=== PATIENT | female | born 1980 | race Caucasian/White ===

== ENCOUNTER 2017-07-23 18:48 | Emergency (ER) | payer MEDICAID ==
[~2017-07-23] VITALS: Ht 152.4 cm; Wt 98.0 kg
[2017-07-23 18:58] VITALS: BP 140/81; PULSE 106; RESP 18; TEMP 98.2; O2SAT 100
--- NOTE | 2017-07-23 19:58 | PD ---
HPI Chief Complaint: Related Problem Time Seen by Provider: 19:21 Travel History International Travel<30 days: No Contact w/Intl Traveler<30days: No Traveled to known affect area: No History of Present Illness HPI 36-year-old female that presents to the ED for evaluation of 13 weeks and spotting. Per patient is started today. She has a history of a miscarriage in the past. She has had pregnancies 3 with one miscarriage, one preemie and the current one. She states that she is follow with her [employer] and had a 9 week ultrasound that showed intrauterine fetus. Per patient she had blood work and she has been told that everything looked fine. She does have a history of diabetes. She takes metformin and insulin. She denies any pain. No urinary or bowel movement issues. Per patient the spotting is minimal. Allergy to hydrocodone. Per patient is currently visiting as she is from out of town. She has any nausea or vomiting. No other symptoms. Patient concerned about miscarriage. PFSH Past Medical History Diabetes: Yes Patient Takes Glucophage: Yes (07/23/2017 0900) Diminished Hearing: No Tetanus Vaccination: Unknown Influenza Vaccination: No ?: LMP: 13 weeks, 04/21/2017 Dilation and Curettage (D&C): Yes Past Surgical History Tonsillectomy: Yes (T&A) Social History Alcohol Use: No Tobacco Use: No Substance Use: No Allergies-Medications (Allergen,Severity, Reaction): Coded Allergies: hydrocodone (Verified Allergy, Severe, 07/23/17) itch and rash Review of Systems Except as stated in HPI: all other systems reviewed are Neg Physical Exam Narrative GENERAL: SKIN: Warm and dry. HEAD: Atraumatic. Normocephalic. EYES: Pupils equal and round. No scleral icterus. No injection or drainage. ENT: No nasal bleeding or discharge. Mucous membranes pink and moist. Tongue is midline. No uvula deviation. NECK: Trachea midline. No JVD. CARDIOVASCULAR: Regular rate and rhythm. No murmurs, S3, S4. RESPIRATORY: No accessory muscle use. Clear to auscultation. Breath sounds equal bilaterally. GASTROINTESTINAL: Abdomen soft, non-tender, nondistended. Hepatic and splenic margins not palpable. Pelvic: Done with female nurse present. MUSCULOSKELETAL: Extremities without clubbing, cyanosis, or edema. No obvious deformities. Full range of motion of the upper and lower extremities bilaterally. 2+ pulses bilaterally. NEUROLOGICAL: Awake and alert. No obvious cranial nerve deficits. Motor grossly within normal limits. Five out of 5 muscle strength in the arms and legs. Normal speech. PSYCHIATRIC: Appropriate mood and affect; insight and judgment normal. Data Data Last Documented VS Vital Signs Date Time Temp Pulse Resp B/P (MAP) Pulse Ox O2 Delivery O2 Flow Rate FiO2 07/23/17 18:58 98.2 106 18 140/81 (100) 100 Orders Orders Beta Hcg (Quant/Titer) (07/23/17 20:02) Complete Blood Count With Diff (07/23/17 20:02) Gc And Chlamydia Pcr (07/23/17 20:02) Type And Screen (07/23/17 20:02) Us Pelvis (Ques Preg/Ectopic) (07/23/17 ) Wet Prep Profile (07/23/17 20:02) Urinalysis - C+S If Indicated (07/23/17 20:02) Ed Urine Pregnancytest Poc (07/23/17 21:17) Labs Laboratory Tests Test 07/23/17 19:49 07/23/17 20:25 White Blood Count 12.5 TH/MM3 Red Blood Count 4.93 MIL/MM3 Hemoglobin 13.4 GM/DL Hematocrit 39.9 % Mean Corpuscular Volume 81.0 FL Mean Corpuscular Hemoglobin 27.1 PG Mean Corpuscular Hemoglobin Concent 33.5 % Red Cell Distribution Width 14.3 % Platelet Count 364 TH/MM3 Mean Platelet Volume 8.3 FL Neutrophils (%) (Auto) 75.1 % Lymphocytes (%) (Auto) 18.4 % Monocytes (%) (Auto) 5.1 % Eosinophils (%) (Auto) 0.9 % Basophils (%) (Auto) 0.5 % Neutrophils # (Auto) 9.4 TH/MM3 Lymphocytes # (Auto) 2.3 TH/MM3 Monocytes # (Auto) 0.6 TH/MM3 Eosinophils # (Auto) 0.1 TH/MM3 Basophils # (Auto) 0.1 TH/MM3 CBC Comment DIFF FINAL Differential Comment Urine Color YELLOW Urine Turbidity HAZY Urine pH 6.0 Urine Specific [place] 1.031 Urine Protein TRACE mg/dL Urine Glucose (UA) 1000 mg/dL Urine Ketones 40 mg/dL Urine Occult Blood LARGE Urine Nitrite NEG Urine Bilirubin NEG Urine Urobilinogen LESS THAN 2.0 MG/DL Urine Leukocyte Esterase NEG Urine RBC 18 /hpf Urine WBC 6 /hpf Urine Squamous Epithelial Cells 14 /hpf Urine Mucus FEW /lpf Microscopic Urinalysis Comment CULT NOT INDICATED Human Chorionic Gonadotropin, Quant 87063 MIU/ML Clue Cells (Wet Prep) NONE SEEN Vaginal Trichomonas (Wet Prep) NONE SEEN Vaginal Yeast (Wet Prep) NONE SEEN MDM Medical Decision Making Medical Screen Exam Complete: Yes Emergency Medical Condition: Yes Medical Record Reviewed: Yes Interpretation(s) CBC & BMP Diagram 07/23/17 19:49 beta in the [id number] UA shows some blood and sugar. Differential Diagnosis Bleeding during versus miscarriage versus threatened versus versus infection Narrative Course 36-year-old female who presents to the ED for evaluation of spotting and being 13 weeks . Patient was properly examined and was found to have signs and symptoms concerning for miscarriage. US and labs were ordered. US still pending at the writing of this note. Case signed out to my attending pending disposition and plan. Faustino Joshi Jul 23, 2017 19:58
[2017-07-23 20:35] LABS: AUTOMATED NEUTROPHIL # 9.4 TH/MM3 (1.8-7.7); BASOPHIL # 0.1 TH/MM3 (0-0.2); BASOPHIL % 0.5 % (0.0-2.0); EOSINOPHIL # 0.1 TH/MM3 (0-0.4); EOSINOPHIL % 0.9 % (0.0-4.0); HEMATOCRIT 39.9 % (35.0-46.0); HEMOGLOBIN 13.4 GM/DL (11.6-15.3); LYMPH % 18.4 % (9.0-44.0); LYMPHOCYTE # 2.3 TH/MM3 (1.0-4.8); MEAN CORPUSCULAR HEMOGLOBIN 27.1 PG (27.0-34.0); MEAN CORPUSCULAR HGB CONC 33.5 % (32.0-36.0); MEAN PLATELET VOLUME 8.3 FL (7.0-11.0); MONO % 5.1 % (0.0-8.0); MONOCYTE # 0.6 TH/MM3 (0-0.9); NEUT % 75.1 % (16.0-70.0); PLATELET COUNT 364 TH/MM3 (150-450); RED BLOOD COUNT 4.93 MIL/MM3 (4.00-5.30); RED CELL DISTRIBUTION WIDTH 14.3 % (11.6-17.2); WHITE BLOOD COUNT 12.5 TH/MM3 (4.0-11.0)
[2017-07-23 20:44] LABS: BILIRUBIN, URINE NEG (NEG); BLOOD, URINE LARGE (NEG); GLUCOSE,URINE 1000 mg/dL (NEG); KETONE, URINE 40 mg/dL (NEG); MUCUS URINE FEW /lpf (OCC); NITRITE,URINE NEG (NEG); SQUAMOUS EPITHELIAL CELL URINE 14 /hpf (0-5); URINE COLOR YELLOW (YELLW/STRAW); URINE LEUKOCYTE ESTERASE NEG (NEG)
--- NOTE | 2017-07-23 23:36 | RADRPT ---
EXAM DATE/TIME: 07/23/2017 22:18 [facility] COMPARISON: No previous studies available for comparison. INDICATIONS : Vaginal bleeding. Ectopic. LAB(S): Beta-hC,426 MEDICAL HISTORY : Diabetes. SURGICAL HISTORY : Tonsillectomy. D&C. ENCOUNTER: Initial ACUITY: 1 day PAIN SCORE: 0/10 LOCATION: Bilateral pelvis TECHNOLOGIST IMPRESSION: MEASUREMENTS: UTERUS: 14.1 x 5.4 x 7.9 cm ENDOMETRIAL STRIPE: >20 mm RIGHT OVARY: Not visualized. cm LEFT OVARY: 3.6 x 3.0 x 2.5 cm FREE FLUID: No CROWN RUMP LENGTH: 5.8 = 12 WKS 2 DAYS FHR: 167 BPM FINDINGS: UTERUS: The myometrium has homogeneous echotexture without mass. Gestational sac is identified measuring 7 c m in diameter. pole is present measuring 5.8 cm in length corresponding to a gestational age of 12 weeks and 2 days. heart motions are present 167 beats per minute. Yolk sac is identified RIGHT OVARY: Not visualized LEFT OVARY: Left ovary is identified with a mid pole cyst measuring 2.3 x 1.5 x 1.7 cm MISCELLANEOUS: No free fluid. CONCLUSION: 1. Viable intrauterine with an estimated gestational age of 12 weeks and 2 days. 2. Probable 2.3 cm corpus luteum in the left ovary. 3. Right ovary cannot be visualized. No free fluid. Win Massey MD on July 23, 2017 at 23:30 Board Certified Radiologist. This report was verified electronically.
--- NOTE | 2017-07-24 00:01 | PD ---
Physical Exam Narrative GENERAL: SKIN: Warm and dry. HEAD: Atraumatic. Normocephalic. EYES: Pupils equal and round. No scleral icterus. No injection or drainage. ENT: No nasal bleeding or discharge. Mucous membranes pink and moist. NECK: Trachea midline. No JVD. CARDIOVASCULAR: Regular rate and rhythm. RESPIRATORY: No accessory muscle use. Clear to auscultation. Breath sounds equal bilaterally. GASTROINTESTINAL: Abdomen soft, non-tender, nondistended. MUSCULOSKELETAL: Extremities without clubbing, cyanosis, or edema. No obvious deformities. NEUROLOGICAL: Awake and alert. No obvious cranial nerve deficits. Motor grossly within normal limits. Five out of 5 muscle strength in the arms and legs. Normal speech. PSYCHIATRIC: Appropriate mood and affect; insight and judgment normal. Data Data Last Documented VS Vital Signs Date Time Temp Pulse Resp B/P (MAP) Pulse Ox O2 Delivery O2 Flow Rate FiO2 07/23/17 18:58 98.2 106 18 140/81 (100) 100 Orders Orders Beta Hcg (Quant/Titer) (07/23/17 20:02) Complete Blood Count With Diff (07/23/17 20:02) Gc And Chlamydia Pcr (07/23/17 20:02) Type And Screen (07/23/17 20:02) Wet Prep Profile (07/23/17 20:02) Urinalysis - C+S If Indicated (07/23/17 20:02) Ed Urine Pregnancytest Poc (07/23/17 21:17) Us Pelvis (Ques Pr/Ect)W Trans (07/23/17 ) Labs Laboratory Tests Test 07/23/17 19:49 07/23/17 20:25 White Blood Count 12.5 TH/MM3 Red Blood Count 4.93 MIL/MM3 Hemoglobin 13.4 GM/DL Hematocrit 39.9 % Mean Corpuscular Volume 81.0 FL Mean Corpuscular Hemoglobin 27.1 PG Mean Corpuscular Hemoglobin Concent 33.5 % Red Cell Distribution Width 14.3 % Platelet Count 364 TH/MM3 Mean Platelet Volume 8.3 FL Neutrophils (%) (Auto) 75.1 % Lymphocytes (%) (Auto) 18.4 % Monocytes (%) (Auto) 5.1 % Eosinophils (%) (Auto) 0.9 % Basophils (%) (Auto) 0.5 % Neutrophils # (Auto) 9.4 TH/MM3 Lymphocytes # (Auto) 2.3 TH/MM3 Monocytes # (Auto) 0.6 TH/MM3 Eosinophils # (Auto) 0.1 TH/MM3 Basophils # (Auto) 0.1 TH/MM3 CBC Comment DIFF FINAL Differential Comment Urine Color YELLOW Urine Turbidity HAZY Urine pH 6.0 Urine Specific [place] 1.031 Urine Protein TRACE mg/dL Urine Glucose (UA) 1000 mg/dL Urine Ketones 40 mg/dL Urine Occult Blood LARGE Urine Nitrite NEG Urine Bilirubin NEG Urine Urobilinogen LESS THAN 2.0 MG/DL Urine Leukocyte Esterase NEG Urine RBC 18 /hpf Urine WBC 6 /hpf Urine Squamous Epithelial Cells 14 /hpf Urine Mucus FEW /lpf Microscopic Urinalysis Comment CULT NOT INDICATED Human Chorionic Gonadotropin, Quant 86891 MIU/ML Clue Cells (Wet Prep) NONE SEEN Vaginal Trichomonas (Wet Prep) NONE SEEN Vaginal Yeast (Wet Prep) NONE SEEN Chlamydia trachomatis DNA (PCR) NOT DETECTED Neisseria gonorrhoeae DNA (PCR) NOT DETECTED MDM Medical Record Reviewed: Yes Supervised Visit with ANABELLE: Yes Narrative Course CBC shows reactive leukocytosis, without any left shift, no anemia, normal platelet count. UA shows glucosuria and some ketonuria but without any evidence of UTI Negative clue cells trichomonas or yeast Negative GC chlamydia Quantitative hCG is 50,426 blood bank is B+ Ultrasound shows a viable I IUP at 12 weeks and 2 days, along with a corpus luteum in the left ovary and the right ovary cannot definitely be visualized but no free fluid is noted. Of note the patient is not actively vomiting does not have any abdominal pain does not have any vaginal active bleeding, nor any vaginal discharge. The patient was able to tolerate p.o. well. All the findings above were discussed with the patient and significant other at the bedside. Diagnosis Primary Impression: Threatened miscarriage Patient Instructions: General Instructions, Threatened Miscarriage (ED) Additional Instruction: Keep appointment with your [facility] [employer] for further evaluation and care of your . Victor M Monahan MD Jul 24, 2017 00:01
[2017-07-24 00:21] VITALS: BP 133/80; PULSE 97; RESP 16; O2SAT 98
== END 2017-07-24 00:26 | disposition home or self-care (01) ==
LOC: NEPE 18:48
DX: O20.0 Threatened abortion (principal); D72.829 Elevated white blood cell count, unspecified; O24.92 Unspecified diabetes mellitus in childbirth; Z3A.13 13 weeks gestation of pregnancy
CPT/HCPCS: 76700; 76817; 81001; 84702; 84703; 85025; 86850; 86900; 86901; 87210; 87491; 87591; 99284